=== PATIENT | male | born 1990 | race Caucasian/White ===

== ENCOUNTER 2017-04-10 22:42 | Emergency (ER) | payer SELFPAY ==
[~2017-04-10] VITALS: Ht 167.6 cm; Wt 73.5 kg
[2017-04-10 22:50] VITALS: BP 138/69
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
[2017-04-10] MEDS ORDERED: HYDROcodone/APAP 5/325MG 1 TAB TABLET PO ONE (23:30)
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
[2017-04-10] MEDS ORDERED: DIAZ5TAB PO (23:52)
[2017-04-10] MEDS ORDERED: NAPR500T PO (23:52)
--- NOTE | 2017-04-11 07:32 | RAD ---
Indication injury, pain. AP oblique and lateral views of the right knee were obtained. No bony abnormality is seen. There is a suggested soft tissue injury medially
--- NOTE | 2017-04-11 07:33 | RAD ---
Indication injury, pain. AP oblique and lateral views of the left wrist were obtained. No bony abnormality is seen
== END 2017-04-11 00:11 | disposition home or self-care (01) ==
LOC: ER 22:42
DX: S06.0X0A Concussion without loss of consciousness, initial encounter (principal); S63.502A Unspecified sprain of left wrist, initial encounter; S80.01XA Contusion of right knee, initial encounter; S80.11XA Contusion of right lower leg, initial encounter; F15.10 Other stimulant abuse, uncomplicated; F17.210 Nicotine dependence, cigarettes, uncomplicated; V19.88XA Pedal cyclist (driver) (passenger) injured in other specified transport accidents, initial encounter; Y93.89 Activity, other specified; Y99.8 Other external cause status; Y92.488 Other paved roadways as the place of occurrence of the external cause
CPT/HCPCS: 70450; 73110; 73562; 99284-25